=== PATIENT | female | born 1945 | race Caucasian/White ===

== ENCOUNTER 2019-07-08 13:57 | Emergency (ER) | payer OTHER, MEDICAID ==
[~2019-07-08] VITALS: Ht 152.4 cm; Wt 74.8 kg
[2019-07-08] MEDS ORDERED: METFORMIN HCL500 MG PO (14:15)
[2019-07-08] MEDS ORDERED: OZEMPIC0.25 MG/0. SUBQ (14:15)
[2019-07-08] MEDS ORDERED: LANTUS100 UNIT/M SUBQ (14:15)
[2019-07-08] MEDS ORDERED: NOVOLOG100 UNIT/1 SUBQ (14:15)
[2019-07-08] MEDS ORDERED: PROTONIX40 M3 PO (14:16)
[2019-07-08] MEDS ORDERED: MILK OF MA400 MG/5 M PO (14:17)
[2019-07-08] MEDS ORDERED: PLAVIX 75 MG TA75 M1 PO (14:17)
[2019-07-08] MEDS ORDERED: LASIX 20 MG TAB20 MG PO (14:17)
[2019-07-08] MEDS ORDERED: ASPIRIN325 PO (14:17)
[2019-07-08] MEDS ORDERED: LOPRESSOR50 PO (14:18)
[2019-07-08] MEDS ORDERED: NORCO 5-325 TA1 EAC1 PO (14:18)
[2019-07-08] MEDS ORDERED: LODINE XL400 MG PO (14:18)
[2019-07-08] MEDS ORDERED: VENTOLIN HFA 1818 GM INH (14:19)
[2019-07-08 14:36] LABS: URINE BILIRUBIN NEGATIVE (Negative); URINE BLOOD NEGATIVE (Negative); URINE CLARITY CLEAR; URINE COLOR YELLOW; URINE GLUCOSE-RANDOM NEGATIVE (Negative); URINE KETONES NEGATIVE (Negative); URINE LEUKOCYTES-REFLEX 1+ (Negative); URINE NITRITE-REFLEX NEGATIVE (Negative); URINE PROTEIN 2+ (Negative); URINE SPECIFIC GRAVITY >= 1.030 (1.005-1.030); URINE UROBILINOGEN 0.2 E.U./dl (0.2-1.0)
[2019-07-08 14:46] LABS: ABSOLUTE BASOPHILS 0.1 thou/uL (0.0-0.2); ABSOLUTE EOSINOPHILS 0.3 thou/uL (0.0-0.7); ABSOLUTE LYMPHOCYTES 2.5 thou/uL (0.8-5.3); ABSOLUTE MONOCYTES 0.8 thou/uL (0.0-1.2); ABSOLUTE NEUTROPHILS 7.3 thou/uL (1.6-8.1); BASOPHILS 0.9 %; EOSINOPHILS 2.7 %; HEMOGLOBIN 12.2 gm/dL (12.0-15.0); LYMPHOCYTES 22.5 %; MCH 27.3 pg (26.0-34.0); MCHC 32.9 g/dL (28.0-37.0); MCV 82.8 fL (80.0-100.0); MONOCYTES 7.5 %; NUCLEATED RBCS 0 /100WBC; PLATELET COUNT* 385 thou/uL (150-400); POLYS 66.4 %; RBC 4.47 mil/uL (4.20-5.00); RDW-CV 15.5 % (10.5-14.5)
[2019-07-08 14:53] LABS: HYALINE CASTS >10 Many /LPF (None Seen); SQUAMOUS >10 Many /LPF (0-3)
[2019-07-08 14:54] LABS: MUCUS 0-3 Light strn/LPF (None Seen)
[2019-07-08 14:55] LABS: CRYSTALS None Seen /LPF (None Seen); URINE RBC None Seen /HPF (0-2)
[2019-07-08 15:00] LABS: ANION GAP 8 mmol/L (7-16); BUN 13 mg/dL (7-18); CALCIUM 8.3 mg/dL (8.5-10.1); CHLORIDE 103 mmol/L (98-107); CO2 28 mmol/L (21-32); CREATININE 1.1 mg/dL (0.6-1.3); GLUCOSE 144 mg/dL (70-99); POTASSIUM 4.7 mmol/L (3.5-5.1); SODIUM 139 mmol/L (136-145)
[2019-07-08 15:15] LABS: ALBUMIN 3.7 g/dL (3.4-5.0); ALKALINE PHOSPHATASE 107 U/L (46-116); LIPASE 167 U/L (73-393); SGOT 37 U/L (15-37); SGPT 22 U/L (30-65); TOTAL BILIRUBIN 0.5 mg/dL (<0.1-1.0); TOTAL PROTEIN 7.2 g/dL (6.4-8.2); TROPONIN-I LEVEL <0.06 ng/mL (<0.06)
[2019-07-08] MEDS ORDERED: GABAPENTIN 100100 MG PO (15:26)
[2019-07-08] MEDS ORDERED: CYMBALTA20 MG PO (15:26)
[2019-07-08] MEDS ORDERED: ZOFRAN ODT4 MG SUBLING (16:55)
[2019-07-08] MEDS ORDERED: CIPROFLOXACIN500 M1 PO (16:55)
[2019-07-08 17:14] VITALS: BP 146/60
--- NOTE | 2019-07-09 18:13 | EKG ---
[place] [address] ELECTROCARDIOGRAM REPORT Name: NENA FRANCIS Room: [facility]#: [id number] Admission: 07/08/19 Attend Phys: Discharge: 07/08/19 Date of : 45 Report #: [id number] THIS REPORT FOR: //name// [facility] ED Test Date: 2019-07-08 Test Time: 14:45:59 Pat Name: NENA FRANCIS Department: Room: Gender: F Mechanical Engineering Technologist: MOE : 1945 Requested By: Bennett Wolfe Order Number: [id number] MD: Timothy Duncan Measurements Intervals [place] Rate: 71 P: -4 IN: 187 QRS: -21 QRSD: 87 T: 56 QT: 409 QTc: 445 Interpretive Statements Sinus rhythm Atrial premature complex Probable LVH with secondary repol abnrm No previous ECG available for comparison Electronically Signed On 07-09-2019 18:13:07 CDT by Timothy Duncan [email or web address] <ELECTRONICALLY SIGNED> By: Timothy Duncan MD, [facility] 07/09/19 1813 1445 1445 Timothy Duncna MD, FACC /EPI
== END 2019-07-08 17:16 | disposition home or self-care (01) ==
LOC: M.ERS 13:57
PROVIDERS: Family Medicine
DX: N39.0 Urinary tract infection, site not specified (principal); R11.2 Nausea with vomiting, unspecified; R19.7 Diarrhea, unspecified; I10 Essential (primary) hypertension; E11.9 Type 2 diabetes mellitus without complications; I25.10 Atherosclerotic heart disease of native coronary artery without angina pectoris; Z95.2 Presence of prosthetic heart valve; Z98.890 Other specified postprocedural states; Z90.49 Acquired absence of other specified parts of digestive tract; Z79.4 Long term (current) use of insulin